=== PATIENT | female | born 1970 | race Two or more races ===

== ENCOUNTER 2021-08-28 04:01 | Emergency (ER) | payer OTHER ==
[~2021-08-28] VITALS: Ht 167.6 cm; Wt 59.0 kg
--- NOTE | 2021-08-28 04:22 | NUR ---
BIB FRIEND C/O R WRIST PAIN & SWELLING S/P MECH FALL TRIPPING UP STRAIRS. 03/13 PAIN. 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
--- NOTE | 2021-08-28 04:34 | NUR ---
ESTATE AGENT AT PT'S BESIDE
[2021-08-28] MEDS ORDERED: IBUP-1957 PO (05:49)
--- NOTE | 2021-08-28 07:11 | NUR ---
Patient discharged to home in stable condition. Written and verbal after care instructions given. Patient verbalizes understanding of instruction. pt ambulatory with a steady gait. Split applied to left wrist.
[2021-08-28 07:14] VITALS: BP 109/61
== END 2021-08-28 07:14 | disposition home or self-care (01) ==
LOC: ER 04:18
DX: S52.591A Other fractures of lower end of right radius, initial encounter for closed fracture (principal); S52.611A Displaced fracture of right ulna styloid process, initial encounter for closed fracture; Z91.013 Allergy to seafood; Z91.018 Allergy to other foods; Z60.2 Problems related to living alone; W01.0XXA Fall on same level from slipping, tripping and stumbling without subsequent striking against object, initial encounter; Y93.89 Activity, other specified; Y92.89 Other specified places as the place of occurrence of the external cause; Y99.8 Other external cause status
CPT/HCPCS: 73110; 73130-TC